=== PATIENT | female | born 1955 | race Caucasian/White ===

== ENCOUNTER 2018-10-11 13:49 | Outpatient (CLI) | payer MEDICARE, OTHER ==
--- NOTE | 2018-10-11 14:55 | MMO ---
Bilateral MAMMO Bilat Diag [facility]. CLINICAL HISTORY: Patient is 63 years old and is seen for diagnostic exam and non-bloody discharge in the right breast. The patient has the following family history of breast cancer: sister, at age 45. The patient has no personal history of cancer. VIEWS: The views performed were: bilateral craniocaudal with tomosynthesis; bilateral mediolateral oblique with tomosynthesis; and bilateral mediolateral with tomosynthesis. FILMS COMPARED: The present examination has been compared to prior imaging studies performed at [facility] on 04/08/2004, 02/08/2009, 01/11/2016 and 10/11/2018. MAMMOGRAM FINDINGS: There are scattered fibroglandular densities. Finding 1: There are no suspicious masses, calcifications or areas of architectural distortion. No sonographic abnormality is seen in this region. Finding 2: There are benign appearing calcifications seen in both breasts. There are no suspicious masses, suspicious calcifications, or new areas of architectural distortion. IMPRESSION: FINDING 1: FINDING IN THE RIGHT BREAST IS BENIGN. NEGATIVE IMAGING SHOULD NEVER DETER BIOPSY IF FINDINGS ON CLINICAL EXAM ARE SUSPICIOUS. MR OF THE BREASTS MAYBE HELPFUL FOR FURTHER EVALUATION IF THE PATIENT'S BREAST DISCHARGE PERSISTS. THE PATIENT WAS NOTIFIED OF THE EXAM RESULTS PRIOR TO LEAVING THE CENTER. FINDING 2: CALCIFICATIONS IN BOTH BREASTS ARE BENIGN. A ROUTINE FOLLOW-UP MAMMOGRAM IN 1 YEAR IS RECOMMENDED. THE RESULTS OF THIS EXAM WERE SENT TO THE PATIENT. ACR BI-RADS Category 2 - Benign finding MAMMOGRAPHY NOTE: 1. A negative mammogram report should not delay a biopsy if a dominant of clinically suspicious mass is present. 2. Approximately 10% to 15% of breast cancers are not detected by mammography. 3. Adenosis and dense breasts may obscure an underlying neoplasm. Reported by: KLAUDIA BRUCE MD Electonically Signed: [id number]
--- NOTE | 2018-10-11 15:47 | ULT ---
RIGHT BREAST DIAGNOSTIC ULTRASOUND: INDICATIONS: Clear to yellow discharge from the right breast. COMPARISON: Bilateral diagnostic mammogram, dated 10/11/2018. FINDINGS: Within the retroareolar region of the right breast there are mildly prominent ducts. No suspicious m ass is evident. IMPRESSION: BI-RADS category 2-Benign. No suspicious abnormality is seen within the right breast retroareolar re gion to explain the patient's right breast discharge. Will refer this patient back to the ordering c linician. Negative imaging should never deter biopsy if findings on clinical examination are suspici ous. If the discharge is of concern or changes in characteristics that would be suggestive of a malignant type discharge, breast magnetic resonance imaging may be helpful for further evaluation. The patient was counseled on the findings prior to leaving the [facility]. POS: OFF
== END 2018-10-11 13:50 | disposition home or self-care (01) ==
LOC: BICMAMMO 13:49
PROVIDERS: ATTEND Nurse Practitioner Family
DX: N64.52 Nipple discharge (principal); N64.59 Other signs and symptoms in breast; Z80.3 Family history of malignant neoplasm of breast
CPT/HCPCS: 77066; G0279

== ENCOUNTER 2021-02-22 07:58 | Outpatient (CLI) | payer BC | END 2021-02-22 07:59 | disposition home or self-care (01) | LOC: RAD-FRANK 07:58 | PROVIDERS: ATTEND Nurse Practitioner Family | DX: R06.89 Other abnormalities of breathing (principal) | CPT/HCPCS: 71046 ==

== ENCOUNTER 2025-02-21 13:59 | Outpatient (CLI) | payer MEDICARE | END 2025-02-21 14:00 | disposition home or self-care (01) | LOC: BICMAMMO 13:59 | PROVIDERS: ATTEND Nurse Practitioner Family | DX: Z12.31 Encounter for screening mammogram for malignant neoplasm of breast (principal); Z78.0 Asymptomatic menopausal state; Z80.3 Family history of malignant neoplasm of breast; Z85.42 Personal history of malignant neoplasm of other parts of uterus; M85.851 Other specified disorders of bone density and structure, right thigh; M85.852 Other specified disorders of bone density and structure, left thigh | CPT/HCPCS: 77063; 77067; 77080 ==